=== PATIENT | female | born 1950 | race Caucasian/White ===

== ENCOUNTER 2016-11-26 11:13 | Emergency (ER) | payer MEDICARE, OTHER ==
[2016-11-26 11:34] VITALS: BP 123/82
[2016-11-26] MEDS ORDERED: Cephalexin 250 MG Cap PO ONE (12:09)
[2016-11-26] MEDS ORDERED: Cephalexin 250 MG Cap ONE (12:16)
--- NOTE | 2016-11-26 12:20 | EDM.PDOC ---
ED HPI Skin/Rash - General Chief Complaint: Skin Complaint Stated Complaint: RASH ON LEFT ARM Time Seen by Provider: 11/26/16 11:30 Source: Reports: Patient History Limitations: Reports: No limitations - History of Present Illness INITIAL COMMENTS - FREE TEXT/NARRATIVE: Very pleasant 66-year-old female presents to the emergency room with complaints of swelling, redness, and warmth to her left arm. She reports that she had a flu vaccination on Sunday in the left arm shoulder, she has some tenderness as expected afterwards the following day. Morning when she woke up she did notice though that redness over the area of the left arm with the a rash had begun in the area become more tender. She denies any fever or chills. Denies swelling the arm distally. Left arm is also the area where they did her blood pressure checks that day. She's otherwise in her normal state of health no other complaints are voiced. Symptom Onset Date: 11/24/16 Timing: Reports: worse Location, Skin: Reports: upper extremity, left Severity: mild Known Identified Source: possible/maybe When: delayed symptom onset Place of Occurrence: other (clinic) Associated Symptoms: Reports: rash. Denies: fever/chills - Related Data Allergies Allergy/AdvReac Type Severity Reaction Status Date / Time No Known Drug Allergies Allergy Cannot Verified 11/26/16 11:34 Remember Home Meds: Ambulatory Orders Medication Instructions Recorded Confirmed Codeine/Promethazine [Phenergan 5 ml PO Q4H PRN 11/26/16 11/26/16 with Codeine] Hydrochlorothiazide 25 mg PO DAILY PRN 11/26/16 11/26/16 Past Medical History HEENT History: Reports: Cataract, Impaired vision Cardiovascular History: Reports: Afib, High cholesterol Respiratory History: Reports: None Gastrointestinal History: Reports: Hemorrhoids Genitourinary History: Reports: None 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 Female Surgical History: Reports: D&C, Hysterectomy, Oophorectomy Endocrine Surgical History: Reports: None Neurological Surgical History: Reports: None Musculoskeletal Surgical History: Reports: Ganglion cyst Dermatological Surgical History: Reports: None Social & Family History - Tobacco Use Smoking Status *Q: Former Smoker Years of Tobacco use: 2 Packs/Tins Daily: 0.5 Used Tobacco, but Quit: Yes Month Tobacco Last Used: February Second Hand Smoke Exposure: No - Caffeine Use Caffeine Use: Reports: Coffee, Tea - Alcohol Use Days Per Week of Alcohol Use: 1 Number of Drinks Per Day: 1 Total Drinks Per Week: 1 - Recreational Drug Use Recreational Drug Use: No ED ROS GENERAL - Review of Systems Review Of Systems: ROS reveals no pertinent complaints other than HPI. ED EXAM, SKIN/RASH Exam: See Below Exam Limited By: No limitations General Appearance: alert, WD/WN, no apparent distress Throat/Mouth: Normal inspection, Normal voice, No airway compromise Head: atraumatic, normocephalic Neck: normal inspection Respiratory/Chest: no respiratory distress, lungs clear, normal breath sounds Cardiovascular: normal peripheral pulses, regular rate, rhythm, no murmur Peripheral Pulses: 2+: radial (L), radial (R) Extremities: no pedal edema, increased warmth, redness, other (patient has localized swelling over the left shoulder anteriorly with slight warmth and redness to the skin. Her license and triceps muscle belly and forearm are soft and nontender to palpation. She has no increased pain with gentle motion of fingers wrist forearm elbow or shoulder with passive or active range of motion pulses are 2+ radius.). No: joint swelling, limited range of motion Psychiatric: normal affect, normal mood Skin: Dry, Intact, Erythema, Increased warmth, Rash, Other (again the skin has an abnormality over the left shoulder anteriorly where there is some erythema and rash). No: Warm (redness) Location, Skin: upper extremity, left Characteristics: patchy, erythematous Associated features: warmth, tenderness, swelling Lymphatic: no adenopathy (none noted in the axillary region) Course - Vital Signs Last Recorded V/S: Last Vital Signs Temp 99.4 F 11/26/16 11:18 Pulse 88 11/26/16 11:18 Resp 18 11/26/16 11:18 BP 123/82 11/26/16 11:18 Pulse Ox 98 11/26/16 11:18 - Orders/Labs/Meds Labs: Laboratory Tests 11/26/16 Range/Units 11:45 WBC 8.3 (5.0-10.0) 10^3/uL RBC 4.61 (3.80-5.50) 10^6/uL Hgb 13.7 (12.0-16.0) g/dL Hct 41.4 (37.0-47.0) % MCV 89.7 (82.0-92.0) fL MCH 29.6 (27.0-31.0) pg MCHC 33.0 (32.0-36.0) g/dL RDW 12.7 (11.5-14.5) % Plt Count 298 (150-300) 10^3/uL MPV 7.3 L (7.4-10.4) fL Neut % (Auto) 71.2 H (50.0-70.0) % Lymph % (Auto) 19.3 L (20.0-40.0) % [place] % (Auto) 7.9 (2.0-8.0) % Eos % (Auto) 1.1 (1.0-3.0) % Baso % (Auto) 0.5 (0.0-1.0) % Neut # 5.9 (2.5-7.0) 10^3/uL Lymph # 1.6 (1.0-4.0) 10^3/uL [place] # 0.7 (0.1-0.8) 10^3/uL Eos # 0.1 (0.1-0.3) 10^3/uL Baso # 0.0 (0.0-0.1) 10^3/uL Meds: Medications Discontinued Medications Generic Name Dose Route Start Last Admin Trade Name Freq PRN Reason Stop Dose Admin Cephalexin 500 mg 11/26/16 12:09 Keflex PO 11/26/16 12:10 ONETIME ONE Departure - Departure Time of Disposition: 12:25 Disposition: Home, Self-Care 01 Condition: good Clinical Impression: Cellulitis of left upper arm Instructions: Cellulitis, Adult Referrals: Dia Bowden PA-C [Primary Care Provider] - Forms: ED Department Discharge Care Plan Goals: 1. Keflex 500 mg 3 times a day for 7 days. 2. Swelling, redness in the left arm persist after antibiotics for 48 hours recommend followup with your primary care for reevaluation. This may indicate a resistant infection and antibiotics may be needed to be changed. - Problem List Review Problem List Initiated/Reviewed/Updated: Yes - Assessment/Plan Assessment:: Left upper arm cellulitis Plan: 1. Keflex 500 mg 3 times a day for the next 7 days. 2. Patient should return to her primary care in 48-72 hours if she does not see a response to the antibiotic. This could indicate a resistant infection and antibiotic may need to be changed.
== END 2016-11-26 12:30 | disposition home or self-care (01) ==
LOC: KA.ED 11:13
DX: L03.114 Cellulitis of left upper limb (principal); I48.91 Unspecified atrial fibrillation; E78.00 Pure hypercholesterolemia, unspecified; D64.9 Anemia, unspecified; Z87.891 Personal history of nicotine dependence
CPT/HCPCS: 36415; 85025; 99283; A9270

== ENCOUNTER 2018-12-26 21:20 | Inpatient (IN) | payer MEDICARE, OTHER ==
[2018-12-26] MEDS ORDERED: cefTRIAXone 2 GM Vial IVPUSH ONE (22:07)
[2018-12-26] MEDS ORDERED: metroNIDAZOLE/Normal Saline 500 MG in Premix Bag 1 BAG IV SCH (22:15)
[2018-12-26] MEDS ORDERED: metroNIDAZOLE/Normal Saline 500 MG in Premix Bag 1 BAG IV ONE (22:54)
[2018-12-26] MEDS: Dextrose 5%-0.45% NaCl 1,000 ML IV SCH (22:57)
[2018-12-26] MEDS: metroNIDAZOLE/Normal Saline 500 MG in Premix Bag 1 BAG IV SCH (23:27)
[2018-12-27] MEDS: Dextrose 5%-0.45% NaCl 1,000 ML IV SCH (06:23)
[2018-12-27] MEDS: metroNIDAZOLE/Normal Saline 500 MG in Premix Bag 1 BAG IV SCH ×3 (06:26→22:51)
[2018-12-27 07:54] LABS: ANION GAP 13.5 mmol/L (5-15); CHLORIDE,CL 106 mmol/L (98-115); SODIUM,NA 144 mmol/L (136-145)
--- NOTE | 2018-12-27 11:39 | PCM.HP ---
H&P History of Present Illness - General Date of Service: 12/27/18 Admit Problem/Dx: Admission Diagnosis/Problem Admission Diagnosis/Problem Diverticulitis of colon with perforation Source of Information: Patient, Old Records, RN History Limitations: Reports: No Limitations - History of Present Illness Initial Comments - Free Text/Narative: Mrs. Chaidez was in her usual state of health until 12/21/18 when she began having lower abdominal pressure and discomfort following having several peanuts the night prior for supper. The following day the pain was worse. Location of pain lower bilateral abdomen without radiation. Character "heavy." Subsequently, she had two hard bowel movements and took some docusate with some improvement, but still didn't have much for typical quantity BM. Appetite was decreased and pain persisted so she saw PCP Dia Bowden PA-C, on 12/25/18 at the [facility]. CBC, CMP, and UA were unremarkable as was abdominal XR. She took milk of magnesia that evening with resulting loose stools. Despite this though, pain persisted and CT abdomen/pelvis was obtained showing evidence of sigmoid diverticulitis with possible "tiny localized microperforation." She was admitted for IV antibiotic management and monitoring. Since admission on the evening of 12/26/18, she has had ongoing mild lower abdominal "fullness" and anorexia, but no other concerns. She has not received any analgesics. She has been tolerating water without increased pain. Notably denies fever, nausea, blood in stool; see full ROS for other negative symptoms. Abdomen Pain Score (Numeric/FACES): 3 - Related Data Allergies/Adverse Reactions: Allergies Allergy/AdvReac Type Severity Reaction Status Date / Time No Known Drug Allergies Allergy Cannot Verified 12/27/18 04:13 Remember Home Medications: Home Meds Codeine/Promethazine [Phenergan with Codeine] 5 ml PO Q4H PRN 11/26/16 [History] Hydrochlorothiazide 25 mg PO DAILY PRN 11/26/16 [History] Acetaminophen [Tylenol] 650 mg PO Q6HR PRN 12/27/18 [History] Ascorbic Acid [Vitamin C] 1,000 mg PO DAILY 12/27/18 [History] Aspirin 650 mg PO DAILY 12/27/18 [History] Calcium Carbonate/Vitamin D3 [Calcium 600 + Vit D Tablet] 1 each PO DAILY [History] [place] 900 mg PO DAILY 12/27/18 [History] Cholecalciferol (Vitamin D3) [Vitamin D3] 1,000 unit PO DAILY 12/27/18 [History] Cinnamon Bark [Cinnamon] 1,000 mg PO DAILY 12/27/18 [History] Gluc/Chnd/Om3/DHA/EPA/Fish/Str [Glucosamine-Chondr Plus Sftgel] 2 each PO DAILY 12/27/18 [History] Grape Seed Extract 50 mg PO DAILY 12/27/18 [History] Milk Thistle 300 mg PO DAILY 12/27/18 [History] Multivitamin [Multivitamins] 1 cap PO DAILY 12/27/18 [History] Niacin 1,000 mg PO DAILY 12/27/18 [History] [place]-3 Fatty Acids [[place]-3] 100 mg PO DAILY 12/27/18 [History] Ubidecarenone [Co Q-10] 200 mg PO DAILY 12/27/18 [History] Vit A/C/E AC/Znox/Cupric Oxide [Eye Vitamin-Minerals Tablet] 1 tab PO DAILY [History] Past Medical History HEENT History: Reports: Cataract, Impaired Vision Cardiovascular History: Reports: High Cholesterol Respiratory History: Reports: None Gastrointestinal History: Reports: Diverticulosis, Hiatal Hernia Genitourinary History: Reports: None 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, Musculoskeletal History: Reports: Arthritis Neurological History: Reports: None Psychiatric History: Reports: None Endocrine/Metabolic History: Reports: None Hematologic History: Reports: Anemia Immunologic History: Reports: None Oncologic (Cancer) History: Reports: None Dermatologic History: Reports: None - Infectious Disease History Infectious Disease History: Reports: Chicken Pox, Measles, Mumps - Past Surgical History HEENT Surgical History: Reports: Oral Surgery, Tonsillectomy Cardiovascular Surgical History: Reports: None Respiratory Surgical History: Reports: None GI Surgical History: Reports: Colonoscopy, EGD Female Surgical History: Reports: D&C, Hysterectomy, Oophorectomy Endocrine Surgical History: Reports: None Neurological Surgical History: Reports: None Musculoskeletal Surgical History: Reports: Ganglion Cyst, Other (See Below) Other Musculoskeletal Surgeries/Procedures:: knee injections Dermatological Surgical History: Reports: None Social & Family History - Family History Cardiac: Reports: CAD, Hypertension Neurological: Reports: CVA Endocrine/Metabolic: Reports: Hypothyroidism Oncologic: Reports: Breast - Tobacco Use Smoking Status *Q: Former Smoker Years of Tobacco use: 3 Packs/Tins Daily: 1 Used Tobacco, but Quit: Yes Month/Year Tobacco Last Used: 1969 Second Hand Smoke Exposure: No - Caffeine Use Caffeine Use: Reports: Tea - Recreational Drug Use Recreational Drug Use: No H&P Review of Systems - Review of Systems: Review Of Systems: See Below General: Reports: Chills, Malaise, Fatigue, Decreased Appetite. Denies: Fever, Weakness HEENT: Denies: Ear Pain, Headaches, Rhinitis, Sinus Congestion, Sore Throat Pulmonary: Denies: Shortness of Breath, Wheezing, Cough Cardiovascular: Denies: Chest Pain, Palpitations, Edema Gastrointestinal: Reports: Abdominal Pain, Anorexia. Denies: Black Stool, Bloody Stool, Difficulty Swallowing, Hematemesis, Hematochezia, Nausea, Vomiting Genitourinary: Denies: Dysuria, Frequency, Burning, Pain, Urgency, Hematuria Musculoskeletal: Denies: Shoulder Pain, Joint Pain, Joint Swelling, Muscle Pain Skin: Denies: Cyanosis, Jaundice, Bruising, Wound Psychiatric: Denies: Confusion, Depression, Anxiety Neurological: Denies: Confusion, Dizziness, Headache, Numbness Hematologic/Lymphatic: Denies: Anemia, Easy Bleeding, Easy Bruising Exam - Exam Exam: See Below - Vital Signs Vital Signs: Last Vital Signs Temp 36.8 C 12/27/18 06:50 Pulse 69 12/27/18 06:50 Resp 16 12/27/18 06:50 BP 132/85 12/27/18 06:50 Pulse Ox 96 12/27/18 06:50 Weight: 78.608 kg - Exam Physical Exam Comments:: GENERAL: Well-appearing elderly white female lying in hospital bed in no acute distress. HEENT: Normocephalic, atraumatic. Conjunctiva clear. Nares patent without discharge. Mucous membranes moist, posterior pharynx unremarkable. NECK: Supple, no masses. CV: Regular rate and rhythm, no murmurs, rubs, or gallops. 2+ radial pulses. PULMONARY: Normal effort, clear to auscultation bilaterally, no wheezes, rales, or rhonchi. ABDOMEN: Positive bowel sounds, soft, mild tenderness to light palpation in the bilateral lower abdomen, nondistended, no rigidity/guarding/rebound. EXTREMITIES: No edema, cyanosis, or clubbing. MUSCULOSKELETAL: Moves all extremities well. NEUROLOGICAL: No obvious deficits. DERMATOLOGIC: No rashes or suspicious lesions in exposed areas. PSYCHIATRIC: Alert, interactive, appropriate affect. - Patient Data Lab Results Last 24 hrs: Laboratory Results - last 24 hr 12/27/18 12/27/18 Range/Units 07:10 07:10 WBC 5.39 (5.00-10.00) 10^3/uL RBC 4.00 (3.80-5.50) 10^6/uL Hgb 12.4 (12.0-16.0) g/dL Hct 37.0 (37.0-47.0) % MCV 92.5 H (82.0-92.0) fL MCH 31.0 (27.0-31.0) pg MCHC 33.5 (32.0-36.0) g/dL RDW 12.3 (11.5-14.5) % Plt Count 260 (150-400) 10^3/uL MPV 8.9 (7.4-10.4) fL Immature Gran % (Auto) 0.2 (0.0-5.0) % Neut % (Auto) 55.4 (50.0-70.0) % Lymph % (Auto) 30.2 (20.0-40.0) % [place] % (Auto) 8.5 H (2.0-8.0) % Eos % (Auto) 5.0 H (1.0-3.0) % Baso % (Auto) 0.7 (0.0-1.0) % Immature Gran # (Auto) 0.01 (0.00-0.50) 10^3/uL Neut # (Auto) 2.98 (2.50-7.00) 10^3/uL Lymph # (Auto) 1.63 (1.00-4.00) 10^3/uL [place] # (Auto) 0.46 (0.10-0.80) 10^3/uL Eos # (Auto) 0.27 (0.10-0.30) 10^3/uL Baso # (Auto) 0.04 (0.00-0.10) 10^3/uL Sodium 144 (136-145) mmol/L Potassium 3.8 (3.3-5.3) mmol/L Chloride 106 (98-115) mmol/L Carbon Dioxide 28.3 (21.0-32.0) mmol/L Anion Gap 13.5 (5-15) mmol/L BUN 10 (6-25) mg/dL Creatinine 0.59 (0.51-1.17) mg/dL Est Cr Clr Drug Dosing 79.84 mL/min Estimated GFR (MDRD) > 60 mL/min Glucose 102 H (75 - 99) mg/dL Calcium 8.3 L (8.7-10.3) mg/dL Total Bilirubin 0.2 (0.2-1.0) mg/dL AST 18 (15-37) U/L ALT 18 (12-78) U/L Alkaline Phosphatase 61 (46-116) IU/L Total Protein 6.8 (6.4-8.2) g/dL Albumin 3.09 (3.00-4.80) g/dL Result Diagrams: 12/27/18 07:10 12/27/18 07:10 Problem List Initiated/Reviewed/Updated: Yes Orders Last 24hrs: Active Orders 24 hr Category Date Time Status Patient Status [ADT] Routine ADT 12/26/18 21:58 Ordered Communication Order [RC] 0700,1500,2300 Care 12/26/18 22:09 Active Intake and Output [RC] 1400,2200,0600 Care 12/26/18 22:02 Active Oxygen Therapy [RC] PRN Care 12/26/18 21:58 Active Up ad Yennifer [RC] ASDIRECTED Care 12/26/18 21:58 Active VTE/DVT Education [RC] PER UNIT ROUTINE Care 12/26/18 21:58 Active Vital Signs [RC] Q4H Care 12/26/18 21:58 Active Nothing Per Oral Diet [DIET] Diet 12/27/18 Breakfast Active Dextrose 5%-0.45% NaCl [Dextrose 5%-1/2 NS] 1,000 ml Med 12/26/18 22:00 Active IV ASDIRECTED metroNIDAZOLE/Normal Saline [Flagyl 500 MG in NS 100 ML Med 12/26/18 23:10 Active ] 500 mg Premix Bag 1 bag IV Q8H Resuscitation Status Routine Resus Stat 12/26/18 21:58 Ordered Medication Orders Dextrose/Sodium Chloride (Dextrose 5%-1/2 Ns) 1,000 mls @ 150 mls/hr IV ASDIRECTED [facility] Last Admin: 12/27/18 06:23 Dose: 150 mls/hr Infusion: 12/27/18 05:38 Dose: 150 mls/hr Admin: 12/26/18 22:57 Dose: 150 mls/hr Metronidazole 500 mg/ Premix 100 mls @ 100 mls/hr IV Q8H [facility] Last Admin: 12/27/18 06:26 Dose: 100 mls/hr Infusion: 12/27/18 00:27 Dose: 100 mls/hr Admin: 12/26/18 23:27 Dose: 100 mls/hr Assessment/Plan Comment:: HPI summary: Mrs. Chaidez is a 68yoF with history notable for diverticulosis (last colonoscopy ) who was in her usual state of health until 12/21/18 when she began having lower abdominal pressure and discomfort following having several peanuts the night prior for supper. Appetite was decreased and pain persisted despite use of laxatives for constipation so she saw PCP Dia Bowden PA-C, on 12/25/18 at the [facility]. CBC, CMP, and UA were unremarkable as was abdominal XR. She took milk of magnesia that evening with resulting loose stools. Despite this, the pain persisted and CT abdomen/pelvis was obtained on showing evidence of sigmoid diverticulitis with possible "tiny localized microperforation." She was admitted for IV antibiotic management and monitoring. Hospital course: Since admission on the evening of 12/26/18, she has had ongoing mild lower abdominal "fullness" and anorexia, but has not received any analgesics and has been tolerating water without increased pain. VS normal, exam without concerning findings, WBC normal, and CMP unremarkable. Hospitalization problems: # Diverticulitis, complicated by possible microperforation - Continue IV antibiotics with ceftriaxone 2g q24h and metronidazole 500mg q8h for at least 48hrs, with plan when clinically improved to transition to po cefdinir 300mg BID and metronidazole 500mg q8h for a total antibiotic course of 14d - Continue IVF, switched to isotonic solution using LR at 125cc/hr, with plan to decrease when tolerating more po - Advance diet to clear liquids for lunch, with plan if tolerated well to increase to full liquids at supper or breakfast - Repeat CBC and BMP in AM - Recommend outpatient colonoscopy at [facility] with Dr. Brennon Saleh or Dr. Frank Bynum in 6-8 weeks # Simple left adnexal cyst: 3.8cm x 4.6cm noted on CT abdomen/pelvis - Recommend outpatient US pelvis to further assess Chronic, stable conditions: # HLD: No rx medications. Misc.: Hold outpatient supplements. Hospitalization details: # FEN: LR at 125cc/hr. Electrolytes normal. Clear liquid diet, advanced as tolerated. # PPX: Ambulation and SCDs given risk score of 2 for DVT. # Code status: FULL. # Emergency contact: , who was updated at bedside by the patient. # Disposition: Admit to inpatient status for diverticulitis complicated by microperforation. Anticipate discharge to home following at least 48hrs of IV antibiotics and clinical improvement without concerns.
--- NOTE | 2018-12-27 11:47 | HP ---
PATIENT PROFILE: The patient is a 68-year-old patient from [place], [place]. CHIEF COMPLAINT: She is being admitted to the hospital today because of abdominal pain and possible perforated diverticulitis of the mid sigmoid colon. HISTORY OF PRESENT ILLNESS: The patient's history is that approximately 6 days ago she started to have pain in the suprapubic and left lower quadrant region of the abdomen after eating a lot of salted peanuts. Couple of days later, her pain intensified and she felt bloated. She has been passing gas although and having small bowel movements. No rectal bleeding. No fever. Subsequently, the pain decreased, however, did not go away and therefore she was seen by Dia Bowden PA-C yesterday. A CBC was performed which was normal. A CAT scan was also performed. This showed acute diverticulitis involving the mid sigmoid colon with possible tiny localized microperforation. No evidence of abscess formation. The patient also was found to have a 3.8 x 4.6 simple left adnexal cyst. She is status post hysterectomy. She was therefore admitted to the hospital for further treatment. PAST MEDICAL HISTORY: Includes hypercholesteremia and history of colon polyps. PAST SURGICAL HISTORY: Includes endovenous laser ablation by Dr. Mouna Saleh on 11/19/2018. She also had a ventral abdominal hernia repair. She had a hysterectomy and bowel resection many years ago. Also tonsillectomy. MEDICATIONS: Include: 1. Hydrochlorothiazide 25 mg daily. 2. Cinnamon 1 daily. 3. Multivitamins 1 daily. 4. Potassium 200 mg daily. 5. Cayenne pepper 1 daily. 6. [place]-3 fatty acid 1200 mg daily. 7. Milk thistle 2 capsules by mouth daily. 8. Vitamin C 5000 mg daily. 9. Aspirin 325 mg 2 tablets daily. 10.Acetaminophen 500 mg q.4h as needed. 11.Multivitamin tablets 1 daily. 12.Vitamin D3 Cholecalciferol 5000 units daily. 13.Calcium carbonate plus vitamin D 500+ vitamin D 200 units daily. 14.Niacin SR 1000 mg daily. 15.Lutein 40 mg daily. 16.CoQ enzyme 200 mg daily. 17.Glucosamine 400 mg capsule 1 capsule daily. She also takes milk thistle two capsules daily 1000 mg and grape seed extract 500 mg 1 time per day. In addition, cinnamon 1000 mg once a day. The patient has had a colonoscopy 4 years ago. ALLERGIES: None known. FAMILY HISTORY: Nil significant at this time. SOCIAL HISTORY: The patient used to be a former smoker, quit in 1969. Smokeless tobacco, never used. Alcohol, 1 drink per week. REVIEW OF SYSTEMS: HEAD AND NECK: No complaints. EYES, EARS, NOSE, AND THROAT: No complaints. NECK: No complaints. HEART: No complaints. ABDOMEN: She complains of pain in the suprapubic region of the abdomen, some bloating. Slight constipation. She is passing some gas. No rectal bleeding. URINARY SYSTEM: No complaints. NEUROLOGICAL: No complaints. MUSCULOSKELETAL SYSTEM: No complaints. PHYSICAL EXAMINATION: GENERAL: Reveals her to be alert, well oriented to space, time, and person. VITAL SIGNS: Her height is 5 feet 5 inches, weight is 173.5 pounds. Blood pressure is 150/80, temperature is normal. Respirations 22. HEAD: Negative. ENT: Negative. HEART: Stable. LUNGS: Stable. NECK: Supple. Full range of motion. No midline swellings. HEART: Regular rhythm. No thrills. No murmurs. LUNGS: Clear to percussion and auscultation. ABDOMEN: Soft. There is some slight distention in the lower part of the abdomen. There is no rebound present. Tenderness is distinctly present in the suprapubic region. No masses are palpable. Bowel tones are normal. Femoral pulses are good. EXTREMITIES: Normal. NEUROLOGIC: Essentially intact. RECTAL: Deferred at this time. LABORATORY DATA: White count 6.5. FINAL DIAGNOSES: 1. Acute diverticulitis involving the mid sigmoid colon with a tiny microperforation, no abscess. 2. A 4.6 x 3.8 simple cyst of the left ovary. 3. Status post hysterectomy. 4. Status post hernia repair. 5. Status post tonsillectomy. 6. History of mild hypertension. 7. History of taking multiple [id number] medications. 8. History of colon polyps. 9. Status post menopause. PLAN: Plan will be to admit this patient to the hospital. Start her on IV fluids. Keep her on clear liquids and start her on Rocephin 1 g IV daily and Flagyl 500 mg every 8 hours. Close monitoring will be performed. /[id number]/MODL
[2018-12-27] MEDS: Lactated Ringers 1,000 ML IV SCH (14:09)
[2018-12-27] MEDS ORDERED: cefTRIAXone 2 GM Vial IVPUSH SCH (21:00)
[2018-12-27] MEDS: Acetaminophen 325 MG Tab PO PRN (22:49)
[2018-12-28] MEDS: Lactated Ringers 1,000 ML IV SCH (00:50)
[2018-12-28] MEDS: metroNIDAZOLE/Normal Saline 500 MG in Premix Bag 1 BAG IV SCH ×2 (06:26→14:09)
[2018-12-28 07:55] LABS: ANION GAP 14.7 mmol/L (5-15); CHLORIDE,CL 104 mmol/L (98-115); SODIUM,NA 141 mmol/L (136-145)
[2018-12-28] MEDS ORDERED: Sodium Chloride 0.9% 10 ML Syringe FLUSH PRN (09:42)
[2018-12-28] MEDS ORDERED: Cefdinir 300 MG Cap PO SCH (10:15)
[2018-12-28] MEDS: Acetaminophen 325 MG Tab PO PRN (11:29)
[2018-12-28 11:34] VITALS: BP 142/88
== END 2018-12-28 15:35 | disposition home or self-care (01) | DRG 392 ==
LOC: KA.MS 21:51
PROVIDERS: ADMIT Physician Assistant Medical; ATTEND Family Medicine
DX: K57.20 Diverticulitis of large intestine with perforation and abscess without bleeding (principal); H54.7 Unspecified visual loss; H26.9 Unspecified cataract; N83.292 Other ovarian cyst, left side; E78.5 Hyperlipidemia, unspecified; I10 Essential (primary) hypertension; E78.00 Pure hypercholesterolemia, unspecified; M19.91 Primary osteoarthritis, unspecified site; Z90.49 Acquired absence of other specified parts of digestive tract; Z87.891 Personal history of nicotine dependence; Z86.010 Personal history of colon polyps; Z79.82 Long term (current) use of aspirin; Z79.899 Other long term (current) drug therapy
CPT/HCPCS: 36415; 80048; 80053; 85025; A9270-GY; J0696; J3490; J7042; J7120

== ENCOUNTER 2019-05-14 07:57 | Day surgery (SDC) | payer MEDICARE, OTHER ==
[~2019-05-14 07:57] MED LIST: EPINEPHrine 1:10,000 1 MG/10 ML Syringe ONE; Midazolam 1 MG/ML 2 ML SDV ONE; Propofol 200 MG/20 ML SDV ONE
[2019-05-14] MEDS ORDERED: Sodium Chloride 0.9% 10 ML Syringe FLUSH PRN (08:00)
[2019-05-14] MEDS ORDERED: Lactated Ringers 1,000 ML IV SCH (08:00)
[2019-05-14] MEDS ORDERED: Propofol 200 MG/20 ML SDV IV ONE (09:07)
[2019-05-14] MEDS ORDERED: Midazolam 1 MG/ML 2 ML SDV IV ONE (09:07)
[2019-05-14] MEDS ORDERED: EPINEPHrine 1:10,000 1 MG/10 ML Syringe ONE (09:34)
--- NOTE | 2019-05-14 10:58 | PCM.OPNOTE ---
- General Post-Op/Procedure Note Date of Surgery/Procedure: 05/14/19 Operative Procedure(s): Previous history of perforated diverticulitis. Plan to do colonoscopy today. Findings: Small polyps were identified at 10 cm and 12 cm from anal margin. These polyps were removed using a combination of injection, loop electrocautery. Multiple diverticula are seen without any complication. Rest of the colon examination was normal. Pre Op Diagnosis: Previous history of perforated diverticulitis. Anesthesia Technique: MAC, Moderate Sedation Primary Surgeon: Mouna Saleh Condition: Good Free Text/Narrative:: INFORMED CONSENT: Patient is here today for elective colonoscopy. All aspects of this procedure have been discussed with the patient. All possible complications also, including possibility of perforation, infection, pain, bleeding and unknown complications. In the event of perforation patient may need to have abdominal exploration, colon resection, colostomy and even was discussed. Anesthetic complications were handled by anesthesia department. The patient understands fully well. Patient did not have any further questions for me at the end of my interview. The patient wishes for me to proceed. PREOPERATIVE DIAGNOSIS/INDICATIONS: [Previous history of perforated diverticulitis] POSTOPERATIVE DIAGNOSIS: [Multiple diverticula seen throughout the colon., Small polyps at 10 cm and 8cms from the anal margin.] INSTRUMENT USED: Olympus videocolonoscope. ASA CLASSIFICATION: [] ANESTHESIA: Continuous EKG, oximetry and intermittent blood pressure and respiratory monitoring were performed throughout the procedure. IV Versed and Fentanyl were administered. PROCEDURE PERFORMED: Colonoscopy removal of polyps using injection of epinephrine, loop and electrocautery and hot biopsy forceps. POSITIONS OF PATIENT: Left lateral. RECTUM: 2 polyps were identified at 8 cm and 10 cm from the anal margin. These polyps were removed using a combination of injection of epinephrine subcutaneous , loop, electrocautery and hot biopsy forceps. The polyps were retrieved and sent for histopathology. SIGMOID COLON: Normal. DESCENDING COLON: Normal. SPLENIC FLEXURE: Normal. TRANSVERSE COLON: Normal. HEPATIC FLEXURE: Normal. ASCENDING COLON: Normal. CECUM: Normal. ILEOCECAL VALVE: Normal. BIOPSY: None. TOLERANCE: Excellent. COMPLICATIONS: None.
[2019-05-14 11:00] VITALS: BP 152/71
== END 2019-05-14 11:20 | disposition home or self-care (01) ==
LOC: KA.SDS 07:57
PROVIDERS: ATTEND Family Medicine
DX: D12.8 Benign neoplasm of rectum (principal); K57.30 Diverticulosis of large intestine without perforation or abscess without bleeding; E78.5 Hyperlipidemia, unspecified; E78.00 Pure hypercholesterolemia, unspecified; Z79.899 Other long term (current) drug therapy; Z86.010 Personal history of colon polyps
CPT/HCPCS: 00812; J0171; J2250; J2704; J7120

== ENCOUNTER 2022-03-01 08:03 | Day surgery (SDC) | payer MEDICARE, OTHER ==
[~2022-03-01 08:03] MED LIST changes: -EPINEPHrine 1:10,000 1 MG/10 ML Syringe ONE; -Midazolam 1 MG/ML 2 ML SDV ONE; -Propofol 200 MG/20 ML SDV ONE; +Sodium Chloride 0.9% 10 ML Syringe FLUSH PRN
[2022-03-01] MEDS: Lactated Ringers 1,000 ML IV SCH (08:28)
[2022-03-01] MEDS ORDERED: Midazolam 1 MG/ML 2 ML SDV ONE (08:45)
[2022-03-01] MEDS ORDERED: Propofol 200 MG/20 ML SDV ONE (08:46)
[2022-03-01 11:49] VITALS: BP 130/74; PULSE 68
== END 2022-03-01 11:45 | disposition home or self-care (01) ==
LOC: KA.SDS 08:03
PROVIDERS: ATTEND Family Medicine
DX: K57.30 Diverticulosis of large intestine without perforation or abscess without bleeding (principal); I48.0 Paroxysmal atrial fibrillation; I10 Essential (primary) hypertension; R53.83 Other fatigue; R06.83 Snoring; M25.552 Pain in left hip; M25.551 Pain in right hip; M25.562 Pain in left knee; G89.29 Other chronic pain; Z79.899 Other long term (current) drug therapy; Z79.82 Long term (current) use of aspirin; E78.5 Hyperlipidemia, unspecified; Z90.49 Acquired absence of other specified parts of digestive tract; Z98.890 Other specified postprocedural states; Z87.891 Personal history of nicotine dependence; Z86.010 Personal history of colon polyps; Z20.822 Contact with and (suspected) exposure to COVID-19
CPT/HCPCS: J2250; J2704; J7120